=== PATIENT | female | born 1960 | race Caucasian/White ===

== ENCOUNTER 2017-08-05 19:31 | Emergency (ER) | payer MEDICAID, SELFPAY ==
[2017-08-05 19:33] VITALS: BP 127/84; PULSE 87; RESP 14; TEMP 35.9; O2SAT 97; BMI 21.8
--- NOTE | 2017-08-05 19:50 | ED.VISSUMM ---
- ER Visit Summary Date of Service: 08/05/17 Chief Complaint: Back pain History of Present Illness: The patient is a 57 F presenting with back pain. Patient states that she was trying to change a tire. She was trying to pull off the lugnuts and when she pulled up she had pain in her lower back. She took ibuprofen prior to arrival. She has been able to ambulate. No bowel or bladder incontinence. No numbness or weakness. No other complaints. Physical Examination: Vitals are stable. Patient is afebrile. Alert no acute distress. HEENT exam is unremarkable. Neck is supple. Lungs are clear and equal bilaterally. Heart is regular rate and rhythm. Abdomen is soft nontender nondistended. Back: diffuse lumbar tenderness, no stepoff Extremities are unremarkable. Skin is warm and dry. No focal neurologic deficit. Normal strength and sensation Remainder of exam is unremarkable. Emergency Department Course and Treatment: She is given Toradol, Norflex IM. Lumbar x-ray show no acute process. She given a prescription for Flexeril. Advised to continue ibuprofen. Advised return to ED for worsening complaints. Advised to follow-up with primary care physician. Disposition: Discharged home Impression: Lumbar strain This note was generated with Yieldex dictation software. It may contain incorrect words, spelling, and punctuation that were not noted in review of the chart prior to signing ED Disposition - Plan for ED Patient: Chief Complaint: Back Referrals: Guillermo Puga MD [Primary Care Provider] -
[2017-08-05] MEDS: Ketorolac 60 MG/2 ML Vial IM (19:51)
[2017-08-05] MEDS: Orphenadrine 60 MG/2 ML Ampul IM (19:52)
--- NOTE | 2017-08-05 20:00 | RAD_ITS ---
STUDY: X-RAY - LUMBAR SPINE REASON FOR EXAM: Female, 57 years old. Black a pop in the lower back TECHNIQUE: 3 view(s) of the lumbar spine were obtained. COMPARISON: None FINDINGS: Normal lumbar lordosis. There is no substantial scoliosis. There is a normal alignment of the vertebrae. There is multilevel endplate spondylosis of the lumbar vertebrae. There is multi-level degenerative disc disease with multi-level disc space narrowing. Prior compression fracture of the superior endplate of L5. The soft tissue structures are unremarkable. RAD/Lumbar Spine 2 or 3 Views IMPRESSION: No acute findings Electronically Signed: Christian Castañeda DO at 20:38 EDT Tel , Service support ,
--- NOTE | 2017-08-05 20:50 | ED.DEP ---
ED Disposition - Plan for ED Patient: Chief Complaint: Back Instructions: ED Sprain Strain Lumbar Prescriptions: Cyclobenzaprine [Flexeril] 10 mg PO TID PRN #20 tablet PRN Reason: Muscle Spasm Referrals: Guillermo Puga MD [Primary Care Provider] -
[2017-08-05 20:59] VITALS: BP 96/52; PULSE 72; RESP 16; O2SAT 97
== END 2017-08-05 21:00 | disposition home or self-care (01) ==
PROVIDERS: Emergency Provider Emergency Medicine; Family Provider Family Medicine; PCP Family Medicine
DX: S39.012A Strain of muscle, fascia and tendon of lower back, initial encounter (principal); E78.00 Pure hypercholesterolemia, unspecified; F41.9 Anxiety disorder, unspecified; F32.9 Major depressive disorder, single episode, unspecified; F20.9 Schizophrenia, unspecified; Z79.82 Long term (current) use of aspirin; Z79.899 Other long term (current) drug therapy; X50.0XXA Overexertion from strenuous movement or load, initial encounter; Y93.89 Activity, other specified; Y92.89 Other specified places as the place of occurrence of the external cause; Y99.8 Other external cause status
CPT/HCPCS: 72100; 96372; 99282

== ENCOUNTER 2017-12-01 11:06 | Day surgery (SDC) | payer MEDICAID, SELFPAY ==
[2017-12-01] VITALS (7 sets, daily range): BP systolic 103–108; BP diastolic 67–74; PULSE 80–104; RESP 12–16; TEMP 36.3–36.8; O2SAT 97–100; BMI 20.2
--- NOTE | 2017-12-01 07:11 | PCM.HP.BLA ---
History and Physical Date of Admission: 12/01/17 HISTORY AND PHYSICAL ? Amy Kennedy 1960 ? REFERRING PHYSICIAN: ~~Guillermo Puga MD ? CHIEF COMPLAINT: ~~Consult (Consult Colonoscopy) ? HPI: The patient is a 57 year old female referred for endoscopy. ~Amy notes a personal history of colon polyp on prior colonoscopy in 2012, and is due for follow-up. ~She denies any change in bowel habits, weight changes, blood in stools, black tarry stools or abdominal pain. ~She denies any first-degree family history of colon cancer. ~The patient ~notes no upper GI complaints currently. ? The patient is being seen by me today at the request of Dr. Puga~for my opinion and advice regarding screening colonoscopy, high-risk due to personal history of polyp. ~Past medical history is significant for hyperlipidemia, palpitations, tricuspid regurgitation, hypotension, hiatal hernia, chronic leukopenia, sciatica, depression and schizophrenia. ~~She follows with Dr. Puga for her chronic medical conditions and also follows with counseling center for her psychiatric medications. ~She denies problems with sedation in the past. ? ? PAST?MEDICAL?HISTORY PAST MEDICAL HISTORY Diagnosis Date Chronic leukopenia 01/09/2015 ? WBC runs 2.25-3.2 Colon polyp 2012 ? tubular adenoma Contracture of joint of left hand 06/16/2012 Depression ? DIFFUS CYSTIC MASTOPATHY 12/14/2004 Fibrosclerosis of breast ? H/O lymphopenia 01/09/2015 Hyperlipidemia ? Intradermal melanocytic nevus: L cheek face 08/04/2012 Mixed hyperlipidemia 08/31/2015 Neutropenia (HCC) ? Onychomycosis 12/28/2014 Other malignant neoplasm of other specified sites of skin 12/14/2004 Palpitations ? Panic attack ? Schizophrenia (HCC) ? Solar lentigo 08/04/2012 Tricuspid regurgitation ? ? ? PAST?SURGICAL?HISTORY PAST SURGICAL HISTORY Procedure Laterality Date 2D ECHO (EXEP) ? 10/10/2016 ? EF=75% 1+ TI BREAST BIOPSY ? 1999 ? Benign Right side COLONOSCOP W/ OR W/O BRSH SPEC ? 07/02/12 ? tubular adenoma, repeat 4 to 5 years FECAL OCCULT BLOOD TEST ? 03/11/2017 ? negative HEART CATHETERIZATION ? 10/11/2016 ? heart cath, ~WNL LAPAROSCOPY DIAGNOSTIC ? 2001 REM LESION TRUNK,ARM, LEG <0.5 CM ? 90s ? BCC from face ? ? CURRENT?MEDICATIONS ? Current Outpatient Prescriptions: aspirin, enteric coated (ASPIRIN, ENTERIC COATED) 81 mg EC tablet Take 81 mg by mouth once daily. diclofenac, EC, (VOLTAREN) 75 mg EC tablet Take 1 tablet by mouth twice daily. For pain/inflammation. Take with food. cyclobenzaprine (FLEXERIL) 10 mg tablet Take 1 tablet by mouth three times daily as needed for Muscle Spasm. Omeprazole 40 mg capsule TAKE 1 CAPSULE BY MOUTH DAILY simvastatin (ZOCOR) 10 mg tablet Take 1 tablet by mouth daily at bedtime. For cholesterol Biotin 2,500 mcg cap Take 1,000 mcg by mouth. traZODone (DESYREL) 100 mg tablet Take 1 tablet by mouth twice daily. Cholecalciferol, Vitamin D3, 1,000 unit cap Take 1 capsule by mouth once daily. LORazepam (ATIVAN) 1 mg tablet Take 1 tablet by mouth twice daily. as neededPer Alondra Locke, [facility] sertraline (ZOLOFT) 100 mg tablet Take 1.5 tablets by mouth once daily. Per Alondra Locke, [facility] VITAMIN B COMPLEX (SUPER B COMPLEX ORAL) Take ~by mouth. predniSONE (DELTASONE) 10 mg tablet Take 4po qd x3 days. Then take 3po qd x3 days. Then take 2 po qd x3 days. Then 1 po qd x3 days. ? No current facility-administered medications for this visit. ? ALLERGIES: Amantadine; Anaprox [Naproxen Sodium]; Iodine [Contrast Dye]; Minocin [Minocycline Hcl]; Saphris [Asenapine] ? PERSONAL HISTORY: SOCIAL?HISTORY Social History ~~Marital status: ~~~~~~~~~~~Spouse name: ~~~~~~~~~~~~~~~~~~ ~~Years of education: ~~~~~~~~~~~~~~~~Number of children: 1 ~~~~~~~~ ? 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 Social History Main Topics ~~Smoking status: Never Smoker ~~~~~~~~~~~~~~~~~~~~~~~~~~~~~~~~~~~~~~~~~~~~~~~~~~~~~~~~~ ? ~~Smokeless tobacco: Never Used ~~~~~~~~~~~~~~~~~~~ ~~Alcohol use: No ~~~~~~~~~ ~~Drug use: No ~~~~~~~~~ ~~Sexual activity: Not Currently ~~~ ? Social History Narrative ~~Son in [place]. ~~Unemployed. ~Worked in [employer] and [employer]. ~~Training for billing and coding. ? ? FAMILY HISTORY: FAMILY?HISTORY FAMILY HISTORY Problem Relation Age of Onset Arthritis Mother ? ? ? OA Coronary Artery Disease Father ? ? ? angina Alzheimer's Disease Father ? Cancer Paternal Grandfather ? ? ? lung Colon Cancer Maternal Grandfather ? Hypertension Maternal Grandmother ? Parkinson's [OTHER] Paternal Grandmother ? Cancer Maternal Uncle ? ? ? leukemia Cancer Maternal Uncle ? ? ? leukemia ? REVIEW OF SYMPTOMS: ~~The review of systems data was entered by the nurse and reviewed by me ? Nursing Notes: Felicia Cannon LPN ~10/01/2017 10:47 AM ~Signed REVIEW OF SYSTEMS: ~~~~~General:~~~The patient NOTES fatigue, denies weight loss, denies weight gain, denies feeling hot, and denies feelings of cold. ~~~~~Eyes: ~The patient denies glaucoma, denies eye injury/surgery, wears glasses or contacts. ~~~~~Ear/Nose/Throat: ~The patient denies allergies, denies hayfever, denies ear infections, and denies bloody noses. ~~~~~Cardiovascular: ~The patient denies chest pain, denies heart disease, denies high blood pressure,denies cardiac stent, denies prior heart attack, NOTES irregular heart beat, NOTES high cholesterol, ~denies poor circulation, NOTES heart failure, other cardiac issues, denies claudication, denies cold feet, denies peripheral arterial stent. ~~~~~Respiratory: ~The patient denies tuberculosis, denies pneumonia, denies frequent cough, denies pulmonary embolism, NOTES shortness of breath, and denies coughing up blood. ~~~~~Gastrointestinal: ~The patient NOTES difficulty swallowing, denies acid reflux, denies ulcers, denies vomiting, denies jaundice/hepatitis, denies gallbladder problems, denies black or tarry stools, NOTES hemorrhoids, denies bleeding from rectum, denies diverticulitis, NOTES constipation, NOTES diarrhea, denies loss of stool control, and denies hernias. ~~~~~Kidney/Bladder: ~The patient denies kidney stones, denies urine infections, and denies bloody urine. ~~~~~Skin: ~The patient NOTES a history of skin cancer, NOTES bleeding/changing moles, and denies a history of skin rash. ~~~~~Neurologic: ~The patient denies a history of epilepsy/convulsions, denies headaches, denies head/spinal injuries, and denies stroke/TIA. ~~~~~Psychiatric: ~The patient NOTES psychiatric medications, NOTES depression, and NOTES voices, denies substance abuse. ~~~~~Endocrine: ~The patient denies thyroid disorders, denies diabetes, and denies hormonal problems. ~~~~~Hematologic: ~The patient NOTES a history of bruising, denies bleeding, and denies anemia, denies blood clots. ~~~~~Infections: ~The patient denies a history of measles and mumps, NOTES rheumatic fever, and denies sexually transmitted diseases. ~~~~~Musculoskeletal: ~The patient NOTES back pain/injury, NOTES back problems, NOTES sciatica, NOTES knee/foot trouble, denies arthritis, or denies gout. ? ? When was patient's last Mammogram screening? 2010 ? ~Last Colonoscopy: ~None ? Felicia Cannon LPN~ I have confirmed and edited as necessary, the PFSH and ROS obtained by others. ? ~ PHYSICAL EXAMINATION: ? General: ~The patient is 57 year old female, well nourished, well hydrated in no acute distress. ~The patient is oriented to time, place, and person. ? VITALS: Blood pressure 118/64, pulse 72.~There is no height or weight on file to calculate BMI.~ ? HEENT: ~Normal cephalic, ataumatic, pupils are equally round, sclera are anicteric, mucous membranes are moist, oropharynx is clear. ~Neck has no masses, asymmetry or lymphadenopathy. ~ ? Respiratory: ~Clear to auscultation and percussion. ~Normal respiratory excursion and pattern. ? Cardiac: ~Examination is regular rate and rhythm. ? Abdominal exam: ~Soft, nontender, ~with no palpable masses. ~No hepatosplenomegaly. ~No palpable hernias. ? Rectal exam: exam deferred ? Extremities: ~no clubbing, cyanosis or edema. ~No adenopathy. ? Other: ? LABORATORY VALUES: As Noted ? RADIOLOGIC STUDIES: ~As Noted ? ? Assessment ~ IMPRESSION: encounter for screening colonoscopy ? PLAN: Will first need to obtain cardiac clearance. ~Patient notes history of abnormal stress test in 2017 and subsequent cardiac catheterization which was reportedly within normal limits. She states saw Dr. Galvez once after that but denies any cardiac follow-up since. ~Request for clearance faxed to Dr. Galvez's office. ? Once cardiac clearance obtained, we will~plan forlower~endoscopy. ~~We discussed the risks and benefits of the planned endoscopy. ~I have informed the patient that complications can occur including failure to complete the endoscopy and perforation. ~The patient had the opportunity to ask questions concerning the planned endoscopy. ~My staff has also explained the procedure to the patient in understandable terms and has given the patient printed material concerning the procedure. ~The patient freely consents to surgery. ? I plan to use golytely bowel preparation for endoscopy ? The patient takes prescription medications which I feel decrease the chance of successful sedation. ~I therefore plan for monitored anesthetic care. ? Diagnoses: (Z86.010) History of colonic polyps ~(primary encounter diagnosis) ? My findings have been communicated to Dr. Puga~via shared medical record. ~This note will be forwarded to Dr. Guillermo Puga MD. ~~ Return to Clinic: The patient is instructed to follow-up with me 1 week post operatively. ? ? Marley Nevarez PA-C
--- NOTE | 2017-12-01 13:15 | PCM.OPRPT ---
Report of Operation Date of Procedure: 12/01/17 Pre-Operative Diagnosis: PERSONAL HISTORY OF COLON POLYPS Post-Operative Diagnosis: NORMAL COLONOSCOPY Surgery/Procedure Performed:: COLONOSCOPY nursing home manager: None Anesthesiologist: Oskar Mir - ASA3 Specimen's removed: NONE Description of Procedure: The patient was brought to the endoscopy suite. Sign in was performed verifying patient, site, planned procedure, critical nursing information, the patient was monitored with cardiac, pulse oximetric, and blood pressure monitoring devices. Monitored anesthetic care was provided for sedation. Following IV sedation, the patient was positioned for colonoscopy. A digital rectal exam was performed which revealed no palpable abnormalities The video colonoscope was inserted and advanced to the cecum as verified by the ileocecal valve, cecal base anatomic features and palpation. the cecum, ascending colon, hepatic flexure, transverse colon, splenic flexure, descending colon and rectosigmoid were all unremarkable. The scope was retroflexed in the rectum and this was unremarkable. The patient tolerated the procedure well and was brought to recovery in stable condition. I recommended follow-up screening colonoscopy in 10 years. - Admit VTE Documentation VTE Present on Admission: No VTE Mechan Device Prophylaxis: SCD's VTE Pharm Prophylaxis ordered?: No
== END 2017-12-01 14:57 | disposition home or self-care (01) ==
LOC: EN 11:07 → AC 11:09
PROVIDERS: Family Provider Family Medicine; PCP Family Medicine; Visit Provider Surgery
PROC: 0DJD8ZZ Inspection of Lower Intestinal Tract, Via Natural or Artificial Opening Endoscopic (ICD-10-PCS; CPT 45378; principal; 2017-12-01 12:40)
DX: Z12.11 Encounter for screening for malignant neoplasm of colon (principal); Z86.010 Personal history of colon polyps; E78.5 Hyperlipidemia, unspecified; I07.1 Rheumatic tricuspid insufficiency; I95.9 Hypotension, unspecified; D72.819 Decreased white blood cell count, unspecified; F32.9 Major depressive disorder, single episode, unspecified; F20.9 Schizophrenia, unspecified; F41.9 Anxiety disorder, unspecified; Z85.828 Personal history of other malignant neoplasm of skin; Z79.82 Long term (current) use of aspirin; Z79.52 Long term (current) use of systemic steroids; Z79.899 Other long term (current) drug therapy
CPT/HCPCS: 45378; J7120

== ENCOUNTER → 2018-01-22 12:56 | Outpatient (CLI) | payer MEDICAID, SELFPAY ==
--- NOTE | 2018-01-22 12:59 | RAD_ITS ---
STUDY: X-RAY - CERVICAL SPINE REASON FOR EXAM: Female, 57 years old. Neck pain TECHNIQUE: 5 view(s) of the cervical spine were obtained. # of Images: 6 COMPARISON: None FINDINGS: Normal anterior atlantoaxial articulation. Normal odontoid process. Normal cervical lordosis. Normal vertebral bodies and endplates. Normal disc space heights. Normal visualized intervertebral neuroforamina. Left carotid calcification. RAD/Cerv Spine 4 or 5 Views IMPRESSION: No osseous abnormality is evident. Electronically Signed: Rip Null MD at 7:35 EDT Tel , Service support ,
== END ==
PROVIDERS: Family Provider Family Medicine; PCP Family Medicine; Referring Provider Anesthesiology Pain Medicine; Visit Provider Anesthesiology Pain Medicine
DX: M54.2 Cervicalgia (principal)
CPT/HCPCS: 72050

== ENCOUNTER 2018-01-28 14:47 | Emergency (ER) | payer MEDICAID, SELFPAY ==
[2018-01-28 14:48] VITALS: BP 109/71; PULSE 97; RESP 16; TEMP 37.1; O2SAT 98; BMI 21.9
--- NOTE | 2018-01-28 14:52 | RAD_ITS ---
STUDY: X-RAY CHEST REASON FOR EXAM: Female, 57 years old. Mid chest pain. TECHNIQUE: Single AP portable view of the chest. COMPARISON: Comparison is made with prior study dated October 10, 2016. FINDINGS: EKG electrodes are seen. Hyperinflation. There is no demonstrated pleural abnormality. Normal size heart. Normal mediastinum and dc. Normal visualized pulmonary arteries. There is atherosclerotic calcification of the aortic arch with tortuosity. There are degenerative changes of the visualized thoracic spine. Normal visualized ribs, clavicles, and shoulders. There is no demonstrated abnormality of the visualized soft tissue structures of the upper abdomen. RAD/Chest 1 View (Portable) IMPRESSION: Hyperinflation. The lungs are clear. Electronically Signed: Zach Peres MD at 15:38 EDT Tel [phone], Service support ,
--- NOTE | 2018-01-28 14:52 | EKG12_ITS ---
Test Reason : CP Blood Pressure : / mmHG Vent. Rate : 090 BPM Atrial Rate : 090 BPM P-R Int : 110 ms QRS Dur : 070 ms QT Int : 360 ms P-R-T Axes : 072 066 054 degrees QTc Int : 440 ms Sinus rhythm with short [place] Otherwise normal ECG Confirmed by ALIREZA LACKEY, ANTHONY ([id number]), web editor DANICA LIGHT ([id number]) on 01/30/2018 1:29:05 PM Referred By: Guillermo Hernandez Confirmed By:ANTHONY ALY MD
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
[2018-01-28 15:37] VITALS: O2SAT 97
[2018-01-28 15:40] LABS: Absolute Lymphocyte Count 0.74 X10^3/ul (0.83-4.51); Absolute Neutrophil Count 1.9 X10^3/uL (2.0-7.7); Basophil# 0.01 X10^3/uL; Basophil% 0.3 % (0-1); Hematocrit 40.1 % (37-47); Hemoglobin 13.1 g/dl (12.0-15.0); Lymphocyte # 0.74 X10^3/ul (4.0); Lymphocyte % 23.2 % (19-41); Mean Corp Hgb Conc 32.7 g/gl (32-36); Mean Corpuscular Hgb 30.1 pg (27.0-32.0); Mean Corpuscular Volume 92.2 fL (81-99); Mean Platelet Vol. 9.7 fl (6.2-12.0); Monocyte% 15.7 % (0-10); Neutrophil # 1.94 X10^3/uL (2.7-7.7); Neutrophil % 60.8 % (47-70); Platelet Count 208 K/mm3 (150-450); RBC Distribution Width CV 13.3 % (11.6-14.6); RBC Distribution Width SD 44.4 fl (35.1-43.9); Red Blood Count 4.35 M/mm3 (4.2-5.4); White Blood Count 3.2 K/mm3 (4.4-11.0)
[2018-01-28 15:42] LABS: POSITIVE COUNT NO; POSITIVE DIFFERENTIAL NO; POSITIVE MORPHOLOGY NO
[2018-01-28 15:57] LABS: Anion Gap 6 (5-15); BUN 4 mg/dL (7-18); BUN/Creat Ratio 5.9 RATIO (10-20); Calcium,Total 10.2 mg/dL (8.5-10.1); Chloride 101 mmol/L (98-107); Creatinine, Serum 0.67 mg/dL (0.55-1.02); EST Glomerular Filtration Rate 95 mL/min (>60); Est Glom Filt Rate - Afr Amer 116 mL/min (>60); Estimated Creatinine Clearance 69.91 ml/min; Glucose 99 mg/dL (74-106); Potassium 3.6 mmol/L (3.5-5.1); Sodium Level 138 mmol/L (136-145)
[2018-01-28 15:59] VITALS: BP 123/81; PULSE 92; RESP 17
[2018-01-28 16:25] VITALS: BP 124/77; PULSE 92; RESP 17
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
[2018-01-28 17:47] VITALS: BP 121/65; PULSE 94; RESP 16
--- NOTE | 2018-01-28 19:14 | ED.DEP ---
ED Disposition - Plan for ED Patient: Chief Complaint: Chest Pain Instructions: ED Chest Pain Atypical Unkn Cause Referrals: Guillermo Puga MD [Primary Care Provider] -
[2018-01-28 19:32] VITALS: BP 125/72; PULSE 99; RESP 18; O2SAT 97
== END 2018-01-28 19:33 | disposition home or self-care (01) ==
PROVIDERS: Emergency Provider Emergency Medicine; Family Provider Family Medicine; PCP Family Medicine
DX: R07.89 Other chest pain (principal); E78.00 Pure hypercholesterolemia, unspecified; F41.9 Anxiety disorder, unspecified; F20.9 Schizophrenia, unspecified; Z79.82 Long term (current) use of aspirin; Z79.899 Other long term (current) drug therapy
CPT/HCPCS: 71045; 80048; 84484; 85025; 93005; 99284; A4216

== ENCOUNTER → 2018-09-01 | Outpatient (CLI) | payer MEDICAID, SELFPAY ==
--- NOTE | 2018-09-01 10:23 | RAD_ITS ---
STUDY: X-RAY - LUMBAR SPINE REASON FOR EXAM: Female, 58 years old. Back pain. TECHNIQUE: 4 view(s) of the lumbar spine were obtained with flexion and extension views. COMPARISON: 08/05/2017 FINDINGS: Normal lumbar lordosis. There is no substantial scoliosis. There is a normal alignment of the vertebrae. Since prior study, there is disc herniation into the superior endplate of L3, there is slight compression of the superior end plate of L4, and progressive [id number] compression fracture of L5. Flexion and extension views show minimal range of motion. No subluxations. The soft tissue structures are unremarkable. RAD/L/S Spine Min 4 Views IMPRESSION: Changes at L3, L4 and L5 since prior study, as specified above. Electronically Signed: Enrique Torres MD at 17:32 EDT , Service support ,
== END | disposition home or self-care (01) ==
LOC: HPRAD 10:22
PROVIDERS: Family Provider Family Medicine; PCP Family Medicine; Referring Provider Orthopaedic Surgery; Visit Provider Orthopaedic Surgery
DX: M54.5 Low back pain (principal)
CPT/HCPCS: 72110

== ENCOUNTER 2018-09-26 15:39 | Emergency (ER) | payer MEDICAID, SELFPAY ==
[2018-09-26 15:41] VITALS: BP 101/63; PULSE 73; RESP 10; TEMP 36.8; O2SAT 99; BMI 21.1
--- NOTE | 2018-09-26 16:25 | RAD_ITS ---
STUDY: X-RAY CHEST REASON FOR EXAM: Female, 58 years old. Lightheaded and weak. TECHNIQUE: Single AP portable view of the chest. COMPARISON: 28 January 2018 FINDINGS: garment folder overlies the left heart border. The lungs are clear and expanded. There is no demonstrated pleural abnormality. Normal size heart. Normal mediastinum and dc. Normal visualized pulmonary arteries. Normal visualized aortic arch and descending thoracic aorta. Normal visualized thoracic spine. Normal visualized ribs, clavicles, and shoulders. There is no demonstrated abnormality of the visualized soft tissue structures of the upper abdomen. RAD/Chest 1 View (Portable) IMPRESSION: No evidence of acute cardiopulmonary process. Electronically Signed: Sony Santana DO at 16:51 EDT , Service support ,
--- NOTE | 2018-09-26 16:25 | ED.DCSUM_ITS ---
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 Patient is currently being worked up by a handkerchief maker at [facility] for palpitations. This is been going on for months. She has episodes where she feels like her heart rate is accelerated. She has had near syncopal episodes but is never actually passed out. She had negative tilt table test. She currently has an implanted residential monitor. Today she just felt like her legs were getting weak. She denies any nausea vomiting. She has chronic diarrhea. No melena. Denies any fever. She has had cardiac catheterization done both here and at [facility]. Denies any coronary disease or stents. No prior MD. Currently she is symptom-free. Just feeling generalized weakness. Physical Examination: Middle-aged female. No acute distress. Vital signs are stable and afebrile. HEENT exam unremarkable. Neck nontender. No lymphadenopathy. Lungs clear to auscultation bilaterally. Heart regular rhythm no murmur. Chest wall nontender. Abdomen soft nontender. Normal bowel sounds no peritoneal signs. Remedies moves all 4. Calves nontender. No edema. No cords. Equal symmetrical radial pulses. Normal human resources project manager strength and dorsi and plantar flexion. Neurologically she is awake and alert with no focal motor deficits. Patient's exam is basically unremarkable. Test Results: EKG shows sinus rhythm rate of 63 with no acute signs of MD or ischemia. Short SC interval at 104. Chest x-ray one-view portable showed no acute abnormality read both by myself the radiologist. CBC shows a white count of 4. Hemoglobin 11 which is her baseline anemia. Elect lites show sodium 129. Potassium 3.4. Gap of 5. Normal creatinine. Troponin is normal. Orthostatic vital signs are done by nurses are negative. Emergency Department Course and Treatment: Patient complaining of transient generalized weakness. His normal exam at this time. Treatment Plan: Repeat exam the patient doing well at 1725. I went over all test results with him and she can be discharged home to follow-up with [facility]. Disposition: Discharge Impression: Transient weakness resolved of uncertain etiology Mild hyponatremia This note was generated with [employer] dictation software. It may contain incorrect words, spelling, and punctuation that were not noted in review of the chart prior to signing ED Disposition - Plan for ED Patient: Referrals: Guillermo Puga MD [Primary Care Provider] -
[2018-09-26 16:35] LABS: Absolute Lymphocyte Count 1.08 X10^3/ul (0.83-4.51); Basophil# 0.01 X10^3/uL; Basophil% 0.2 % (0-1); Hematocrit 33.5 % (37-47); Hemoglobin 11.1 g/dl (12.0-15.0); Lymphocyte # 1.08 X10^3/ul (4.0); Lymphocyte % 23.7 % (19-41); Mean Corp Hgb Conc 33.1 g/gl (32-36); Mean Corpuscular Hgb 29.4 pg (27.0-32.0); Mean Corpuscular Volume 88.6 fL (81-99); Mean Platelet Vol. 9.6 fl (6.2-12.0); Neutrophil # 2.97 X10^3/uL (2.7-7.7); Neutrophil % 65.1 % (47-70); Platelet Count 203 K/mm3 (150-450); RBC Distribution Width CV 13.2 % (11.6-14.6); RBC Distribution Width SD 42.5 fl (35.1-43.9); Red Blood Count 3.78 M/mm3 (4.2-5.4); White Blood Count 4.6 K/mm3 (4.4-11.0)
[2018-09-26 16:38] LABS: POSITIVE COUNT NO; POSITIVE DIFFERENTIAL NO; POSITIVE MORPHOLOGY NO
[2018-09-26 16:48] LABS: Anion Gap 5 (5-15); BUN 6 mg/dL (7-18); BUN/Creat Ratio 8.2 RATIO (10-20); Calcium,Total 8.3 mg/dL (8.5-10.1); Chloride 94 mmol/L (98-107); Creatinine, Serum 0.73 mg/dL (0.55-1.02); EST Glomerular Filtration Rate 87 mL/min (>60); Est Glom Filt Rate - Afr Amer 105 mL/min (>60); Estimated Creatinine Clearance 63.39 ml/min; Glucose 77 mg/dL (74-106); Potassium 3.4 mmol/L (3.5-5.1); Sodium Level 129 mmol/L (136-145)
--- NOTE | 2018-09-26 17:27 | ED.DEP ---
ED Disposition - Plan for ED Patient: Disposition: Home or Assisted Living Instructions: WEAKNESS, Unk Cause Referrals: Guillermo Puga MD [Primary Care Provider] - 3-5 Days if not improving Additional Instructions: Plenty of fluids and rest. Your EKG, chest x-ray and labs are basically unremarkable. Her sodium is just a little low. Follow-up with your primary care physician this week.
[2018-09-26 17:40] VITALS: BP 111/68; PULSE 72; RESP 18; O2SAT 98
== END 2018-09-26 17:41 | disposition home or self-care (01) ==
PROVIDERS: Emergency Provider Emergency Medicine; Family Provider Family Medicine; PCP Family Medicine
DX: R53.1 Weakness (principal); E87.1 Hypo-osmolality and hyponatremia; F32.9 Major depressive disorder, single episode, unspecified; Z85.828 Personal history of other malignant neoplasm of skin; Z79.899 Other long term (current) drug therapy
CPT/HCPCS: 71045; 80048; 84484; 85025; 99285; A4216

== ENCOUNTER 2018-10-19 10:00 | Outpatient (RCR) | payer MEDICAID, SELFPAY ==
--- NOTE | 2018-09-16 15:48 | HP.PTEVAL ---
Patient's Visit Information SANTA RAMSEY is a 58 year old F referred to Physical Therapy by Ondina David MD with a diagnosis of LEFT RADICULOPATHY. Date of Evaluation: 09/16/18 Physical Therapist: Shana Andres PT, Cert MDT - Visit Plan Frequency: 2x /Week Duration: 4-6 Weeks Plan: AQUATIC THERAPY FOR PAIN RELEIF, POSTURE CORRECTION/STRENGTHENING, INSTRUCTION IN APPROPRIATE BODY MECHANICS AND ACTIVITY MODIFICATIONS. DLS WITH A NEUTRAL SPINE TOLERATED. BALWINDER LE ROM, STRETCHING AND STRENGTHENING. HEP INSTRUCTION. 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 ROLLAR SKATING, BOWLING. Disability: NO. Present symptoms: BALWINDER LOW BACK PAIN LEFT > RIGHT. PAIN DOWN LLE TO THE ANKLE. ALSO SEEING EDUCATIONAL THERAPIST. MRI OF LEFT ANKLE PENDING. Present since: AUGUST 2017. Pain Scale: WORST 7/10, LEAST 5/10. Currently: 6/10. Commenced as a result of: TRYING TO TAKE A TIRE OFF OF MOMS CAR - FELL. Symptoms at onset: BACK AND LEFT. Worse: LIFTING, TWISTING, CERTAIN CHAIRS THAT PUSH ON THE BACK OF HER LEG, STANDING, BENDING. Better: HEAT ON LEFT HIP AND ICE ON RIGHT LOW BACK. HEAT ON LOWER LEG. Disturbed sleep: YES. Previous history/Previous treatment: WENT TO THE ED AT [facility], MEDICATIONS, PHYSICAL THERAPY AT [facility], PAIN MGMT, HODAN'S - DIDN'T HELP. [facility] - DEC 2017 FOUND OUT SHE HAD FRACTURES IN HER BACK. CONSULT WITH DR. REICH A NEUROLOGIST IN [place] - NO FOLLOW UP. HER PCP DR. PIERRE AND DR. PONCE SCHEDULED HER AN SAMUEL'T WITH DR. DAVID BUT THAT GOT CANCELLED TWICE. ACTUALLY GOT TO SEE DR. DAVID ON 09/01/18 WITH FOLLOW UP SCHEDULED IN A MONTH. STATES DR. DAVID TOLD HER SHE HAS A PINCHED NERVE L5 BUT NOT SURE IF SHE CAN DO SURGERY - BECAUSE OF OSTEOPOROSIS. Coughing/sneezing/straining: POSITIVE. Gait: INDEP GAIT WITHOUT AD. PAINFUL WALKING WITH LEFT LEG TURNING IN. RECENTLY HAD THERAPY ON LEFT ANKLE AT [facility] FOR ANKLE. Difficulty initiating urinatin: NO. Accidents: NO. Unexplained weight loss: NO. Imaging: HAS HAD X-RAYS AND MRI OF BACK SINCE FALL. RECENT FLEX/EXT X-RAYS TOO: STUDY: X-RAY - LUMBAR SPINE. REASON FOR EXAM: Female, 58 years old. Back pain. TECHNIQUE: 4 view(s) of the lumbar spine were obtained with flexion and. extension views. COMPARISON: 08/05/2017. . FINDINGS: Normal lumbar lordosis. There is no substantial scoliosis. There is a. normal alignment of the vertebrae. Since prior study, there is disc herniation into the superior endplate of. L3, there is slight compression of the superior end plate of L4, and. progressive [id number] compression fracture of L5. Flexion and extension views show minimal range of motion. No subluxations. The soft tissue structures are unremarkable. . RAD/L/S Spine Min 4 Views. IMPRESSION: Changes at L3, L4 and L5 since prior study, as specified above. . Electronically Signed: Enrique Torres MD. at 17:32. PMH/Recent major surgery: H/O FAINTING - REOCCURING AGAIN. GI PROBLEMS - EVER SINCE FALL AND SEES A GI SPECIALIST. DIAHREA. PLOF (Prior Level of Function): UNLIMITED. OTHER: PATIENT REPORTS SHE STARTED HAVING FAINTING EPISODES IN 2017. STOPPED AND THEN RE-STARTED AFTER FALL. CURRENTLY ON HEART MONITOR. - Objective Sitting/Standing Posture: POOR. FORWARD HEAD, ROUNDED SHOULDERS, DECREASED LORDOSIS. NO RELEVENT LATERAL SHIFT. Active Correction of posture: WORSE. Other Observations: INDEP GAIT INTO PT WITHOUT ANY ASSISTIVE DEVICES OR LOB. INDEP TRANSFER SIT TO STAND WITHOUT UE ASSIST. INTERMITTENT GRABBING TYPE PAINS DURING SUBJECTIVE PORTION OF EVAL. Motor deficit: BALWINDER LE WEAKNESS. MMT'ING IS PAIN LIMITED. RIGHT HIP 4-/5, KNEE EXT 4/5, KNEE FLEX 4/5, ANKLE 5/5. LEFT HIP 3+/5, KNEE EXT 4-/5, KNEE FLEX 4-/5, ANKLE 4-/5 (RECENT REHAB LEFT ANKLE AND UNDER CARE OF EDUCATIONAL THERAPIST WITH POSSIBLE ANKLE MRI PENDING). Sensory deficit: DECREASED LEFT THIGH LIGHT TOUCH SENSATION COMPARED TO RIGHT. ROM deficit: TIGHT BALWINDER HIP FLEXORS, HS'S AND GASTROC SOLEUS COMPLEX'S. Reflexes: 2/3 BALWINDER LES. Dural Signs: POSITIVE LLE. Lumbar mvmt loss: flex - MOD. ext - XIMENA. R SG - XIMENA. L SG - XIMENA. PATIENT WITH C/O INCREASED PAIN WITH LUMBAR ROM TESTING ALL PLANES. Core strength: POOR. Palpation: TENDERNESS WITH PALPATION OF LUMBOSACRAL SPINE AND BALWINDER PARASPINALS LEFT > RIGHT - Goals Goal 1:: DECREASE C/O BACK AND LLE SX'S. Goal Time Frame: 4-6 Weeks Goal 2:: IMRPOVE PERSONAL CARE, LIFTING, WALKING, SITTING, STANDING, SLEEP, SOCIAL LIFE, TRAVEL, WORK AND HOMEMAKING FUNCTION. Goal Time Frame: 4-6 Weeks Goal 3:: INSTRUCT IN PROPHYLAXIS Goal Time Frame: 4-6 Weeks - Rehabilitation Potential Rehabilitation Potential: Fair - Anticipated Interventions Patient/Client Instruction: Educate patient on: Condition, Plan of Care, Risk Factors, Benefits of Fitness Program For the Purpose of:: To improve self management Therapeutic Exercise to Include: Strength training, Body mechanics, Postural training, In an aquatic setting, Dynamic Lumbar Stabilization For the Purpose of:: To decrease pain, To increase ROM, To improve muscle performance and motor function, To increase tolerance to activity/condition/position, To improve ability of physical actions for home/community/work/leisure Thank you for the opportunity to evaluate your patient. For Medicare and Medicare HMO plans, please review the plan of care and approve it. It will need to be FAXED BACK to us at [phone] for Medicare purposes. For Medicare only, by signing this I certify the plan of care. Please let me know if there are questions or concerns regarding this plan of care. Physician Signature: Date:
--- NOTE | 2018-10-19 15:52 | HP.PTREVAL_ITS ---
Ondina David MD, It has been my pleasure to treat SANTA RAMSEY over the last 7 visits for LEFT RADICULOPATHY. Please see the progress note below for an update on the physical therapy plan of care! Subjective: PATEINT REPORTS SHE THINKS SHE IS A LITTLE BETTER. FOLLOW UP SCHEDULED WITH DR. DAVID 10/27/18. PATIENT REPORTS SHE WOULD LIKE TO TRY TO CONTINUE WATER THERAPY BECAUSE SHE THINKS IT IS HELPING HER STRENGTHEN AND CONTROL HER BELLY MUSCLES AND HER BUTTOCK MUSCLES. PATIENT REPORTS SHE FOUND OUT THAT SHE HAD 10 THERAPY VISITS AT THE [facility] IN ADDITION TO THE VISITS SHE HAS HAD HERE. NOVEMBER 04 [address] PONCE. STILL NEEDS TO SCHEDULE MRI FOR FOOT. STILL HAS HEART MONITOR INSERTED AND HAS TO COORDINATE MRI WITH HEART MONITOR TESTING. Objective/Function: INDEP GAIT INTO PT WITHOUT ANY ASSISTIVE DEVICES OR LOB. INDEP TRANSFER SIT TO STAND WITHOUT UE ASSIST. Motor deficit: BALWINDER LE WEAKNESS. MMT'ING IS PAIN LIMITED. RIGHT HIP 4-/5, KNEE EXT 4/5, KNEE FLEX 4/5, ANKLE 5/5. LEFT HIP 4-/5, KNEE EXT 4-/5, KNEE FLEX 4-/5, ANKLE 4-/5 (RECENT REHAB LEFT ANKLE AND UNDER CARE OF AIRCRAFT MAINTENANCE INSTRUCTOR WITH ANKLE MRI PENDING). Sensory deficit: DECREASED LEFT THIGH LIGHT TOUCH SENSATION COMPARED TO RIGHT. ROM deficit: TIGHT BALWINDER HIP FLEXORS, HS'S AND GASTROC SOLEUS COMPLEX'S. Dural Signs: POSITIVE LLE. Lumbar mvmt loss: NT THIS TIME. PATIENT REFUSES AND STATES THE DOCTOR TOLD HER NOT TO BEND. Core strength: POOR. Palpation: TENDERNESS WITH PALPATION OF LUMBOSACRAL SPINE AND BALWINDER PARASPINALS LEFT > RIGHT. BACK OSWESTRY SCORE HAS ONLY IMPROVED FROM 27 TO 25. Plan Plan: WOULD RECOMMEND CONTINUED AQUATIC THERAPY PER ORIGINAL POC DUE TO PROGRESS MADE BUT ROOM FOR MORE IMRPOVEMENT BUT DECREASING TO 2 TIMES A WEEK DUE TO LIMITED INSURANCE THERAPY VISITS LEFT FOR THE YEAR AND PATIENTS SCHEDULE BEING FULL WITH WORK AND SAMUEL'TS. PATIENT AGREEABLE TO POC DISCUSSED. Goals Goal 1:: DECREASE C/O BACK AND LLE SX'S. Goal Time Frame: 4-6 Weeks Goal Progress: Progressing Goal 2:: IMRPOVE PERSONAL CARE, LIFTING, WALKING, SITTING, STANDING, SLEEP, SOCIAL LIFE, TRAVEL, WORK AND HOMEMAKING FUNCTION. Goal Time Frame: 4-6 Weeks Goal Progress: Progressing Goal 3:: INSTRUCT IN PROPHYLAXIS Goal Time Frame: 4-6 Weeks Goal Progress: Progressing Anticipated Interventions Patient/Client Instruction: Educate patient on: Condition, Plan of Care, Risk Factors, Benefits of Fitness Program For the Purpose of:: To improve self management Therapeutic Exercise to Include: Strength training, Body mechanics, Postural training, In an aquatic setting, Dynamic Lumbar Stabilization For the Purpose of:: To decrease pain, To increase ROM, To improve muscle performance and motor function, To increase tolerance to activity/condition/position, To improve ability of physical actions for home/community/work/leisure Please do not hesitate to contact me at [phone] by phone or Fax: if you have questions or concerns regarding this new plan of care! Sincerely, Shana Andres, PT, Cert MDT
--- NOTE | 2018-12-08 14:32 | HP.PT.NRP ---
HP - Discharge Summary (1) - Patient Information SANTA RAMSEY was seen in my office for initial evaluation on 09/16/18. The following Plan of Care was established for this patient: Initial Frequency: 2x /Week Initial Duration: 4-6 Weeks - Anticipated Interventions Patient/Client Instruction: Educate patient on: Condition, Plan of Care, Risk Factors, Benefits of Fitness Program For the Purpose of:: To improve self management Therapeutic Exercise to Include: Strength training, Body mechanics, Postural training, In an aquatic setting, Dynamic Lumbar Stabilization For the Purpose of:: To decrease pain, To increase ROM, To improve muscle performance and motor function, To increase tolerance to activity/condition/position, To improve ability of physical actions for home/community/work/leisure This patient was last seen in our office 10/19/18. Pertinent comments regarding their Physical therapy will appear below: This patient has not returned to Physical Therapy and is appropriate to return to MD for further follow-up as needed. At this point I will be discontinuing this patient from physical therapy. I would be happy to see this patient again in the future if found appropriate by the physician. Thank you! Shana Andres, PT, Cert MDT
== END 2018-10-19 19:00 | disposition home or self-care (01) ==
LOC: PT 10:00
PROVIDERS: Family Provider Family Medicine; PCP Family Medicine; Referring Provider Orthopaedic Surgery; Visit Provider Orthopaedic Surgery
DX: M54.10 Radiculopathy, site unspecified (principal)
CPT/HCPCS: 97113; 97530

== ENCOUNTER 2018-11-17 15:10 | Emergency (ER) | payer MEDICAID, SELFPAY ==
[2018-11-17 13:57] VITALS: BMI 21.1
[2018-11-17 15:12] VITALS: BP 105/70; PULSE 81; RESP 14; TEMP 36.4; O2SAT 97; BMI 20.2
--- NOTE | 2018-11-17 15:41 | ED.VISSUMM ---
- ER Visit Summary Date of Service: 11/17/18 Chief Complaint: Sharp shooting pains to her scalp History of Present Illness: The patient is a 58 F history of chronic back pain from compression fractures. She states for weeks or months she has had intermittent episodes of sharp shooting pain on her scalp. At times it feels like may be a headache. Denies any falls or trauma. She is not on any blood thinners. She denies any neurological symptoms otherwise. No trouble with her vision or speech. No facial numbness or weakness. No arm or leg weakness, numbness or trouble ambulating. Physical Examination: Middle-aged female. No acute distress. Mom is at bedside. HEENT exam pupils round react to light. Her motions are intact. No facial droop. Normal speech. Scalp she said it is mildly tender but otherwise there is no abnormality on the right. There is no swelling or redness noticed coloration. Neck nontender. Lungs clear to auscultation. Heart regular rhythm no murmur. Abdomen soft nontender. Remedies moves all 4. Neurovascular intact. She has equal symmetrical 5-5 casting and pasting supervisor strength. Dorsi plantarflexion intact. Fingertip to nose and heel blakely are both within normal limits. NIH score 0. She is awake and alert. She knows day, month, year and president 9 states. Test Results: None Emergency Department Course and Treatment: He states she had an MRI 1 to 3 years ago of her brain and believes that was negative. She said that was done at either a outpatient facility and [facility] or [facility] in [place] she cannot remember exactly. And I discussed that this is most likely nerve inflammation. She has been already placed on gabapentin without any relief. She has been on that for weeks if not longer. I explained her I did not think imaging or lab work would be of any benefit and she deferred at this time. Treatment Plan: Continue her current meds and follow-up with neurology. Disposition: Discharge Impression: Scalp pain secondary to neuralgia This note was generated with [employer] dictation software. It may contain incorrect words, spelling, and punctuation that were not noted in review of the chart prior to signing ED Disposition - Plan for ED Patient: Referrals: Guillermo Puga MD [Primary Care Provider] -
--- NOTE | 2018-11-17 15:46 | DCINST.ED_ITS ---
ED Disposition - Plan for ED Patient: Disposition: Home or Assisted Living Instructions: HEADACHE, Unspecified Referrals: Beni Jimenez MD [STAFF PHYSICIAN] - As soon as possible Additional Instructions: Follow-up with a neurologist either here at the hospital one at the [facility] and referred to [place].
== END 2018-11-17 16:08 | disposition home or self-care (01) ==
LOC: ED 15:59
PROVIDERS: Emergency Provider Emergency Medicine; Family Provider Family Medicine; PCP Family Medicine
DX: M79.2 Neuralgia and neuritis, unspecified (principal); Z79.899 Other long term (current) drug therapy
CPT/HCPCS: 99282

== ENCOUNTER → 2019-03-19 07:57 | Outpatient (CLI) | payer MEDICAID, SELFPAY ==
[2019-03-02 11:00] VITALS: BMI 21.5
--- NOTE | 2019-03-20 05:48 | PFTCOMP_ITS ---
COMPLETE PULMONARY FUNCTION TEST INTERPRETATION Brief HPI: Patient is a 59 year old female, currently under the care of Dwayne Malhotra, who presents to [facility] for complete pulmonary function tests secondary to diagnosis of dyspnea. Respiratory therapist reports good effort and reproducible results. Interpretation: Forced expiration spirometry shows no large airways obstructive ventilatory defect with an FEV1 of 100% predicted. There is no significant bronchodilator response by strict ATS criteria. Spirograms are of good quality and plateau normally. The respiratory flow volume loop shows a normal pattern. Lung volumes by body plethysmography show a normal total lung capacity at 5.33 L, 118% predicted. All other lung volumes are within normal limits. Diffusion capacity by carbon monoxide is normal at 97% predicted. The airway resistance is normal. No previous pulmonary function tests were available for review. Impression: These pulmonary function tests are within normal limits.
== END ==
PROVIDERS: Family Provider Family Medicine; PCP Family Medicine; Referring Provider Nurse Practitioner Family; Visit Provider Nurse Practitioner Family
DX: R06.09 Other forms of dyspnea (principal)
CPT/HCPCS: 94060; 94726; 94729

== ENCOUNTER → 2019-04-15 13:48 | Outpatient (CLI) | payer MEDICAID, SELFPAY ==
[2019-03-02 11:00] VITALS: BMI 21.5
--- NOTE | 2019-04-15 13:49 | ECHOD_ITS ---
Reason For Study: SOB Procedure This was a 2D Doppler, Color Flow transthoracic echocardiogram. Exam performed in department. Left Ventricle Normal LV size. Left ventricular systolic function is normal. The estimated ejection fraction is 65 %. The global longitudinal strain = -21 % (normal). No evidence for diastolic dysfunction. No regional wall motion abnormalities noted. Right Ventricle Normal RV size. Normal systolic function. Atria Normal left atrium. Normal right atrium. No doppler evidence for ASD. Mitral Valve There is no mitral annular calcification. Normal mitral valve. Mild (1+) mitral valve insufficiency. Tricuspid Valve Normal tricuspid valve. Trivial tricuspid valve insufficiency. Right ventricular systolic pressure estimated to be 21 mmHg. Aortic Valve Trisinus/trileaflet aortic valve. Mild diffuse aortic valve thickening. Pulmonic Valve The pulmonic valve is not well visualized. Great Vessels Normal sized aortic root. Pericardium/Pleural No pericardial effusion. MMode/2D Measurements & Calculations LVIDd: 3.8 cm IVSd: 0.83 cm Ao root diam: 3.2 cm LVIDs: 2.4 cm LVPWd: 0.72 cm RVDd: 2.6 cm FS: 37.6 % LAV(MOD-bp): 40.7 ml LA A4 area: 15.2 cm2 LA dimension(2D): 3.0 cm LAV(MOD-bp) Indexed: 27.4 ml/m2 LAV(MOD-sp2): 37.9 ml LAV(MOD-sp4): 35.1 ml RA A4 area: 13.1 cm2 Doppler Measurements & Calculations MV E max andrew: 79.5 cm/sec Lat Peak E' Andrew: 11.5 cm/sec Med Peak E' Andrew: 9.8 cm/sec MV A max andrew: 73.8 cm/sec E/E' lat: 6.9 E/E' med: 8.1 MV E/A: 1.1 Ao V2 max: 138.4 cm/sec LV V1 max: 127.6 cm/sec PA V2 max: 83.7 cm/sec Ao max P.7 mmHg LV V1 max P.5 mmHg TR max andrew: 209.7 cm/sec TR max P.6 mmHg Interpretation Summary Left ventricular systolic function is normal. The estimated ejection fraction is 65 %. The global longitudinal strain = -21 % (normal). Mild (1+) mitral valve insufficiency. Trivial tricuspid valve insufficiency. Mild diffuse aortic valve thickening. Right ventricular systolic pressure estimated to be 21 mmHg. No evidence for diastolic dysfunction. Ordering Physician: Dwayne Malhotra/George Galvez Referring Physician: Guillermo Puga Performed By: Coty Francisco RDCS
== END ==
PROVIDERS: Family Provider Family Medicine; PCP Family Medicine; Referring Provider Nurse Practitioner Family; Visit Provider Nurse Practitioner Family
DX: R06.09 Other forms of dyspnea (principal); R06.02 Shortness of breath; I35.9 Nonrheumatic aortic valve disorder, unspecified
CPT/HCPCS: 93306

== ENCOUNTER 2019-06-10 11:30 | Outpatient (RCR) | payer MEDICAID, SELFPAY ==
[2019-03-02 11:00] VITALS: BMI 21.5
--- NOTE | 2019-05-24 12:48 | HP.PTEVAL_ITS ---
Patient's Visit Information SANTA RAMSEY is a 59 year old F referred to Physical Therapy by MINDI Corbin with a diagnosis of Lumbar radiculitis, DDD. Date of Evaluation: 05/24/19 Physical Therapist: Oskar Medina, DPT, OCS, CSCS - Visit Plan Frequency: 2x /Week Duration: 4-6 Weeks Plan: 2x/week for 4-6 weeks for... pool ex and teach to I, pt thinks she can join Y at d/c and continue. HS and quad stretches,. LB ROM. core adn LE and postural strength. - Subjective Findings: Has LBP and sciatica from disc problems. Has good days and bad days. Pain is B and left leg pain when bad. Sometimes in R hip. Has stenosis. LBP: 7/10, L leg 8/10 this morning. Turning when walking makes her worse. Feels better sitting. uses MH alot. Sleeps with pain meds and good some night but not others.4-8 hours. 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 Worse as shift goes on. Hobbies: rollerskating but can't do it anymore. Used to walk [facility] and cannot do that either. Dresses self adn bathes adn bathrrom I but can hurt to bend and shave legs. Dresses self but takes increased time. - Pain LBP Pain Intensity (Out of 10): 2 Pain Intensity Range: 0, 7 L leg pain Pain Intensity (Out of 10): 3 Pain Intensity Range: 0, 8 - Objective Walks slowly with wide SHAQ but I, [employer] SYSTEMSers chair and table I. LB AROM ext max limited adn R side pain, flexion mod limited no pain, R sB hurts R side min limits, L sb min limits no pain. Posture is forward head and flat lordosis in L/S. No obvious leg length discrepancy. Tender to palpation slightly on R gluts and into paraspinals. reflexes 2/3 patella adn achilles B. Sensation is WNL to gross light touch B LE. Strength is 3/5 B LE hips, knees and ankles and unstable core with testing in sitting. - slump and - SLR. HS flexibility is poor as is quads B. - Goals Goal 1:: Patient be I in appropriate HEP to limit future problems(pool ex) Goal Time Frame: 4-6 Weeks Goal 2:: Pain reports 2/10 at worst adn 75% improved Goal Time Frame: 4-6 Weeks Goal 3:: oswestry score 20% disability or less. Goal Time Frame: 4-6 Weeks Goal 4:: Work without increased pain. Goal Time Frame: 4-6 Weeks - Rehabilitation Potential Physical Therapy Diagnosis: Degenerative changes in LB giving pain in back and legs. Rehabilitation Potential: Questionable - Anticipated Interventions Patient/Client Instruction: Educate patient on: Condition, Plan of Care For the Purpose of:: To decrease pain, To increase ROM, To improve muscle performance and motor function, To increase tolerance to activity/condition/position Therapeutic Exercise to Include: Strength training, Postural training, Flexibilty training, Neuromotor development, In an aquatic setting, Passive ROM, Active ROM, Dynamic Lumbar Stabilization For the Purpose of:: To decrease pain, To increase ROM, To improve muscle performance and motor function, To increase tolerance to activity/condition/position, To improve ability of physical actions for home/community/work/leisure Thank you for the opportunity to evaluate your patient. For Medicare and Medicare HMO plans, please review the plan of care and approve it. It will need to be FAXED BACK to us at [phone] for Medicare purposes. For Medicare only, by signing this I certify the plan of care. Please let me know if there are questions or concerns regarding this plan of care. Physician Signature: Date:
--- NOTE | 2019-07-30 15:26 | HP.PTDCNRP_ITS ---
SANTA RAMSEY was seen in my office for initial evaluation on 05/24/19. The following Plan of Care was established for this patient: Initial Frequency: 2x /Week Initial Duration: 4-6 Weeks Patient/Client Instruction: Educate patient on: Condition, Plan of Care For the Purpose of:: To decrease pain, To increase ROM, To improve muscle performance and motor function, To increase tolerance to activity/condition/position Therapeutic Exercise to Include: Strength training, Postural training, Flexibilty training, Neuromotor development, In an aquatic setting, Passive ROM, Active ROM, Dynamic Lumbar Stabilization For the Purpose of:: To decrease pain, To increase ROM, To improve muscle performance and motor function, To increase tolerance to activity/condition/position, To improve ability of physical actions for home/ community/work/leisure This patient was last seen in our office 06/10/19. Pertinent comments regarding their Physical therapy will appear below: Pt seen 5 visits of aquatic therapy. she cancelled her last 3 visits without rescheduling. At this point, it has been over a month and I will discontinue due to nonattendance. At this point I will be discontinuing this patient from physical therapy. I would be happy to see this patient again in the future if found appropriate by the physician. Thank you! Oskar Medina, DPT, OCS, CSCS
== END 2019-06-10 19:00 | disposition home or self-care (01) ==
LOC: PT 11:30
PROVIDERS: PCP Family Medicine; Visit Provider Nurse Practitioner Family
DX: M51.17 Intervertebral disc disorders with radiculopathy, lumbosacral region (principal); M47.27 Other spondylosis with radiculopathy, lumbosacral region; M48.56XD Collapsed vertebra, not elsewhere classified, lumbar region, subsequent encounter for fracture with routine healing; M46.96 Unspecified inflammatory spondylopathy, lumbar region; M48.07 Spinal stenosis, lumbosacral region; M79.10 Myalgia, unspecified site
CPT/HCPCS: 97113; 97162

== ENCOUNTER → 2019-08-03 | Outpatient (CLI) | payer MEDICAID, SELFPAY ==
[2019-03-02 11:00] VITALS: BMI 21.5
== END | disposition home or self-care (01) ==
LOC: LABSPEC 12:47
PROVIDERS: PCP Family Medicine
DX: R05 Cough (principal)
CPT/HCPCS: 87635; C9803; G2023; U0004

== ENCOUNTER → 2019-08-09 | Outpatient (CLI) | payer MEDICAID, SELFPAY ==
[2019-03-02 11:00] VITALS: BMI 21.5
== END | disposition home or self-care (01) ==
LOC: LABSPEC 15:15
PROVIDERS: PCP Family Medicine; Referring Provider Otolaryngology Otolaryngology/Facial Plastic Surgery; Visit Provider Otolaryngology Otolaryngology/Facial Plastic Surgery
DX: J02.9 Acute pharyngitis, unspecified (principal)
CPT/HCPCS: 87070

== ENCOUNTER → 2019-11-10 17:33 | Outpatient (CLI) | payer MEDICAID, SELFPAY ==
[2019-03-02 11:00] VITALS: BMI 21.5
== END ==
PROVIDERS: PCP Family Medicine; Referring Provider Nurse Practitioner Family; Visit Provider Nurse Practitioner Family
DX: D72.819 Decreased white blood cell count, unspecified (principal); Z87.898 Personal history of other specified conditions
CPT/HCPCS: 87635; 94799; U0003

== ENCOUNTER → 2019-11-24 | Outpatient (CLI) | payer MEDICAID, SELFPAY ==
[2019-03-02 11:00] VITALS: BMI 21.5
== END | disposition home or self-care (01) ==
LOC: LABSPEC 15:32
PROVIDERS: PCP Family Medicine; Referring Provider Otolaryngology Otolaryngology/Facial Plastic Surgery; Visit Provider Otolaryngology Otolaryngology/Facial Plastic Surgery
DX: J02.9 Acute pharyngitis, unspecified (principal)
CPT/HCPCS: 87070; 87077; 87186

== ENCOUNTER → 2019-11-30 | Outpatient (CLI) | payer MEDICAID, SELFPAY ==
[2019-03-02 11:00] VITALS: BMI 21.5
--- NOTE | 2019-11-30 08:20 | RAD_ITS ---
STUDY: X-RAY - ESOPHAGUS (BARIUM SWALLOW) WITH FLUOROSCOPY REASON FOR EXAM: Female, 59 years old. FEVER, SORE THROAT X 2 MONTHS. WHITE SPOTS BACK OF THROAT. -- HX BASAL CA TECHNIQUE: 16 view(s) of the esophagus were obtained following swallowing of barium. FLUOROSCOPY TIME (if supplied): (0:35) minutes/seconds COMPARISON: None. FINDINGS: There is no demonstrated esophageal foreign body. There is no demonstrated stricture or mucosal abnormality. Normal gastroesophageal junction, without a demonstrated hiatal hernia. The patient ingest a 12 mm tablet at bedtime. The tablet is trapped at the gastroesophageal junction There is atherosclerotic tortuosity of the aortic arch and descending thoracic aorta. Normal visualized pulmonary parenchyma. Normal visualized osseous structures of the thorax. RAD/Esophagus Single Contrast IMPRESSION: The ingested 12 mm tablet of barium is trapped at the gastroesophageal junction. Electronically Signed: Zach Peres, at 9:16 EDT , Service support ,
== END | disposition home or self-care (01) ==
PROVIDERS: PCP Family Medicine; Referring Provider Otolaryngology Otolaryngology/Facial Plastic Surgery; Visit Provider Otolaryngology Otolaryngology/Facial Plastic Surgery
DX: R13.10 Dysphagia, unspecified (principal)
CPT/HCPCS: 74220

== ENCOUNTER 2021-02-28 11:07 | Outpatient (RCR) | payer MEDICAID, SELFPAY ==
--- NOTE | 2021-02-28 11:50 | HP.PTEVAL_ITS ---
Patient's Visit Information SANTA RAMSEY is a 61 year old F referred to Physical Therapy by NOEL Hopkins with a diagnosis of Generalized weakness.. Date of Evaluation: 02/28/21 Physical Therapist: Oskar Medina DPT, OCS, CSCS - Visit Plan Frequency: 2x /Week Duration: 4-6 Weeks Plan: 2x/week for 4 weeks for. 1. sStart with gneral strength and core and postural ex and rogress to home program. Once I with home program, please progress out to gym for shelter teaching. (isometric LB ex) Consider pool if back doesn't tolerate ex. - Subjective I am weak. Doctor wants her to be stronger. Family doctor sent her to continue to get stronger. Lost strength in her legs in 2017. 2018 back and disc problems. Legs feel weak since. Hard to get down to the floor and get back up. Has 6 steps to porch and they are challenging with carrying anything. Can walk 1/10th of mile to [place] but gets tired. Sees heart doctor for fast heart beat and tricuspid valve leaky but no precautions for heart. Pain at times in LB with no pattern, sometimes in morning. Bending can also cause it to hurt. LBP but no leg symptoms lately. No numbness or tingling. No regular exercises. 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 sleep is Ok much of time. Spends day cleaning house, hard with leg weakness. Cannot lift stuff. - Pain LBP Pain Intensity (Out of 10): 0 Pain Intensity Range: 0, 6 Comment: worse lifting away from body. (water off floor) - Objective Tired after TUG. back hurts with 30 sec sit stand. reflexes 0/3 patella and achilles. Sensation LE WNL to gross light touch. LB AROM WFL, self limited mod in extension , flexion and SB OK. HS and quads mod tight. Strength 4- in quads and HS, hip abd and ext 3+, ankles 4/5. No major complaints of pain today. Much time spent talking exit strategy with patinet to be I shelter for major benefits. - Balance/Special Test Scores Functional Gait Assessment Score: 26 % Disability: 13.3400 Lower Extremity Functional Score: 31 TUG Test Time Seconds: 9 30 Second Chair Rise Test Seconds: 10 - Goals Goal 1:: I appropirate home and gym based ex to limit future problems. Goal Time Frame: 4-6 Weeks Goal 2:: Lift water off floor without back pain Goal Time Frame: 4-6 Weeks Goal 3:: Patient ambulate to mailbox 2x 1/4 mile without LBP or fatiuge Goal Time Frame: 4-6 Weeks Goal 4:: 50/80 LEFS Goal Time Frame: 4-6 Weeks Goal 5:: 15 reps 30 sec sit to stand reps Goal Time Frame: 4-6 Weeks - Rehabilitation Potential Physical Therapy Diagnosis: Weakness limiting home abilities Rehabilitation Potential: Fair - Anticipated Interventions Patient/Client Instruction: Educate patient on: Condition, Plan of Care For the Purpose of:: To decrease pain, To improve muscle performance and motor function, To increase tolerance to activity/condition/position, To improve ability of physical actions for home/community/work/leisure Therapeutic Exercise to Include: Strength training, Gait and locomotor training, Dynamic Lumbar Stabilization, Scapular Strength/Stabilization For the Purpose of:: To decrease pain, To increase ROM, To improve muscle performance and motor function, To improve ability of physical actions for home/community/work/leisure Thank you for the opportunity to evaluate your patient. For Medicare and Medicare HMO plans, please review the plan of care and approve it. It will need to be FAXED BACK to us at [phone] for Medicare purposes. For Medicare only, by signing this I certify the plan of care. Please let me know if there are questions or concerns regarding this plan of care. Physician Signature: Date:
--- NOTE | 2021-05-21 07:30 | HP.PT.NRP ---
SANTA RAMSEY was seen in my office for initial evaluation on 02/28/21. The following Plan of Care was established for this patient: Initial Frequency: 2x /Week Initial Duration: 4-6 Weeks Patient/Client Instruction: Educate patient on: Condition, Plan of Care For the Purpose of:: To decrease pain, To improve muscle performance and motor function, To increase tolerance to activity/condition/position, To improve ability of physical actions for home/community/work/leisure Therapeutic Exercise to Include: Strength training, Gait and locomotor training, Dynamic Lumbar Stabilization, Scapular Strength/Stabilization For the Purpose of:: To decrease pain, To increase ROM, To improve muscle performance and motor function, To improve ability of physical actions for home/community/work/leisure This patient was last seen in our office 02/28/21. Pertinent comments regarding their Physical therapy will appear below: Pt seen for initial evaluation and POC established. No approval received and multiple phone calls to patient to inform but unable to get through each time. Will discontinue at this time as it has been nearly 3 months and I will discontinue due to nonattendance. At this point I will be discontinuing this patient from physical therapy. I would be happy to see this patient again in the future if found appropriate by the physician. Thank you! Oskar Medina, DPT, OCS, CSCS Balance/Gait/Functional tests - Balance/Special Test Scores Functional Gait Assessment Score: 26 % Disability: 13.3400 Lower Extremity Functional Score: 31 TUG Test Time Seconds: 9 Tug Test: <10 sec.=free mobile 30 Second Chair Rise Test Seconds: 10
== END 2021-02-28 19:00 | disposition home or self-care (01) ==
LOC: PT 11:07
PROVIDERS: PCP Family Medicine; Referring Provider Physician Assistant; Visit Provider Physician Assistant
DX: R53.1 Weakness (principal)
CPT/HCPCS: 97162